=== PATIENT | female | born 1985 | race Caucasian/White ===

== ENCOUNTER 2024-08-23 23:29 | Emergency (ER) | payer OTHER ==
[2024-08-23 23:45] VITALS: BP 109/76; PULSE 84; RESP 16; TEMP 97.9; BMI 28.2
== END 2024-08-24 00:20 | disposition home or self-care (01) ==
LOC: FER 23:29
DX: R50.9 Fever, unspecified (principal); B34.9 Viral infection, unspecified; M79.10 Myalgia, unspecified site; R53.81 Other malaise; R63.8 Other symptoms and signs concerning food and fluid intake
CPT/HCPCS: 0241U-QW; 99283-25

== ENCOUNTER 2024-10-10 19:05 | Observation (INO) | payer OTHER ==
[2024-10-10] MEDS ORDERED: FAMOTIDINE 20 MG/50 ML IVPB 20 MG/50 ML MG IVPB ONE (19:53)
[2024-10-10] MEDS ORDERED: ACETAMINOPHEN INJECTION 100 ML ONE (19:53)
[2024-10-10] MEDS ORDERED: ALBUTEROL SO4 2.5/IPRATROPIUM 0.5 INH SOL 3 ML VIAL.NEB. NEB ONE (19:57)
[2024-10-10] MEDS: ALBUTEROL SO4 2.5/IPRATROPIUM 0.5 INH SOL 3 ML VIAL.NEB. NEB ONE (20:06)
[2024-10-10] MEDS: FAMOTIDINE 20 MG/50 ML IVPB 20 MG/50 ML MG IVPB ONE (20:06)
[2024-10-10] MEDS: ACETAMINOPHEN 1000 MG/100 ML BAG IVPB ONE (20:06)
[2024-10-10 20:16] LABS: ABSOLUTE IMMATURE GRANULOCYTES 0.12 x10^3/uL (0.0-0.031); BASOPHILS # 0.01 x10^3/uL (0.01-0.08); EOSINOPHIL % 0.0 % (0.7-5.8); EOSINOPHILS # 0.00 x10^3/uL (0.04-0.36); MCHC 33.7 g/dl (32.2-35.5); MEAN CELL VOLUME 87.0 fl (79.4-94.8); MEAN PLT VOLUME 11.0 fl (9.4-12.3); MONOCYTE # 1.36 x10^3/uL (0.24-0.86); MONOCYTE % 8.9 % (4.7-12.5); RDW 13.3 % (12.1-16.8)
[2024-10-10 20:41] LABS: CO2 29.0 mmol/L (21-32); GLUCOSE,RANDOM 98.0 mg/dL (74-106)
[2024-10-10 20:44] LABS: CREATININE 0.7 mg/dL (0.55-1.3); SGOT/AST 40.0 U/L (15-37); SGPT/ALT 88.0 U/L (13-61)
[2024-10-10 20:46] LABS: TOT PROT 7.1 g/dl (6.4-8.2)
[2024-10-10 20:47] LABS: ALK PHOS 66.0 U/L (45-117)
[2024-10-10 21:02] LABS: URINE APPEARANCE CLEAR; URINE BILIRUBIN NEGATIVE (NEGATIVE); URINE COLOR YELLOW; URINE GLUCOSE (UA) NEGATIVE (NEGATIVE); URINE KETONE TRACE (NEGATIVE); URINE LEUK ESTERASE NEGATIVE (NEGATIVE); URINE NITRITE NEGATIVE (NEGATIVE); URINE PROTEIN TRACE (NEGATIVE); URINE UROBILINOGEN 1.0 mg/dL (0.2-1.0)
[2024-10-10] MEDS: SODIUM CHLORIDE 0.9% 500 ML INFUS.BAG IV ONE (22:43)
[2024-10-11] MEDS ORDERED: ALBUTEROL SO4 0.083% IH SOL 2.5 MG/3 ML VIAL.NEB. NEB PRN (00:23)
[2024-10-11] MEDS ORDERED: MELATONIN 5 MG TABLETS PO PRN (00:35)
[2024-10-11] MEDS: LACTATED RINGERS SOLUTION 1,000 ML/1,000 ML INFUS.BAG IV SCH (01:32)
[2024-10-11] MEDS: methylPREDNISolone NA SUCC 40 MG/1 ML VIAL IVPUSH SCH (01:32)
[2024-10-11 02:15] VITALS: BMI 27.8
[2024-10-11] MEDS: ACETAMINOPHEN 1000 MG/100 ML BAG IVPB ONE (03:09)
[2024-10-11] MEDS: ALBUTEROL SO4 2.5/IPRATROPIUM 0.5 INH SOL 3 ML VIAL.NEB. NEB SCH (08:00)
[2024-10-11] MEDS: PANTOPRAZOLE SODIUM 40 MG VIAL IVPUSH SCH (09:45)
[2024-10-11 10:33] LABS: CO2 28.0 mmol/L (21-32); GLUCOSE,RANDOM 111.0 mg/dL (74-106)
[2024-10-11 10:36] LABS: CREATININE 0.5 mg/dL (0.55-1.3); SGOT/AST 28.0 U/L (15-37); SGPT/ALT 74.0 U/L (13-61)
[2024-10-11 10:38] LABS: TOT PROT 6.1 g/dl (6.4-8.2)
[2024-10-11 10:39] LABS: ALK PHOS 57.0 U/L (45-117)
[2024-10-11 11:00] LABS: ABSOLUTE IMMATURE GRANULOCYTES 0.07 x10^3/uL (0.0-0.031); BASOPHILS # 0.01 x10^3/uL (0.01-0.08); EOSINOPHIL % 0.0 % (0.7-5.8); EOSINOPHILS # 0.00 x10^3/uL (0.04-0.36); MCHC 32.9 g/dl (32.2-35.5); MEAN CELL VOLUME 88.2 fl (79.4-94.8); MEAN PLT VOLUME 11.6 fl (9.4-12.3); MONOCYTE # 0.24 x10^3/uL (0.24-0.86); MONOCYTE % 2.3 % (4.7-12.5); RDW 13.4 % (12.1-16.8)
[2024-10-11] MEDS: BUDESONIDE/FORMETEROL FUMARATE 160/4.5 mcg INHALER IH SCH (13:25)
[2024-10-11] MEDS: ACETAMINOPHEN 1000 MG/100 ML BAG IVPB PRN (19:22)
[2024-10-12] MEDS: SODIUM CHLORIDE NASAL SPRAY 44 ML BOTTLE NS PRN (01:35)
[2024-10-12 08:04] LABS: ABSOLUTE IMMATURE GRANULOCYTES 0.17 x10^3/uL (0.0-0.031); BASOPHILS # 0.01 x10^3/uL (0.01-0.08); EOSINOPHIL % 0.0 % (0.7-5.8); EOSINOPHILS # 0.00 x10^3/uL (0.04-0.36); MCHC 33.4 g/dl (32.2-35.5); MEAN CELL VOLUME 87.4 fl (79.4-94.8); MEAN PLT VOLUME 11.4 fl (9.4-12.3); MONOCYTE # 0.72 x10^3/uL (0.24-0.86); MONOCYTE % 5.6 % (4.7-12.5); RDW 13.8 % (12.1-16.8)
[2024-10-12 08:57] LABS: CO2 31.0 mmol/L (21-32); GLUCOSE,RANDOM 124.0 mg/dL (74-106)
[2024-10-12 09:00] LABS: CREATININE 0.4 mg/dL (0.55-1.3)
[2024-10-12 10:31] LABS: SGPT/ALT 60.0 U/L (13-61)
[2024-10-12 10:32] LABS: SGOT/AST 13.0 U/L (15-37)
[2024-10-12 10:33] LABS: TOT PROT 6.0 g/dl (6.4-8.2)
[2024-10-12 10:34] LABS: ALK PHOS 55.0 U/L (45-117)
[2024-10-12] MEDS: MECLIZINE HCL 25 MG TABLET (FP) PO PRN (17:25)
[2024-10-13 06:59] LABS: ABSOLUTE IMMATURE GRANULOCYTES 0.16 x10^3/uL (0.0-0.031); BASOPHILS # 0.02 x10^3/uL (0.01-0.08); EOSINOPHIL % 0.0 % (0.7-5.8); EOSINOPHILS # 0.00 x10^3/uL (0.04-0.36); MCHC 33.6 g/dl (32.2-35.5); MEAN CELL VOLUME 88.1 fl (79.4-94.8); MEAN PLT VOLUME 11.2 fl (9.4-12.3); MONOCYTE # 1.03 x10^3/uL (0.24-0.86); MONOCYTE % 7.3 % (4.7-12.5); RDW 14.2 % (12.1-16.8)
[2024-10-13 07:25] LABS: CO2 32.0 mmol/L (21-32); GLUCOSE,RANDOM 101.0 mg/dL (74-106)
[2024-10-13 07:28] LABS: CREATININE 0.5 mg/dL (0.55-1.3); SGOT/AST 12.0 U/L (15-37); SGPT/ALT 57.0 U/L (13-61)
[2024-10-13 07:30] LABS: TOT PROT 5.8 g/dl (6.4-8.2)
[2024-10-13 07:31] LABS: ALK PHOS 51.0 U/L (45-117)
[2024-10-13 09:04] VITALS: BP 114/77; PULSE 85; RESP 16; TEMP 97.7
[2024-10-13] MEDS: methylPREDNISolone NA SUCC 40 MG/1 ML VIAL IVPUSH SCH (10:11)
[2024-10-13 19:15] LABS: HEPATITIS B SURF AG NON-MATERN NON-REACTIVE (NONREACTIVE)
== END 2024-10-13 13:45 | disposition home or self-care (01) ==
LOC: JER 19:05 → JERBED 21:09 → J4S 10-11 01:17
PROVIDERS: ADMIT Family Medicine; ATTEND Family Medicine
PROC: 3E033NZ Introduction of Analgesics, Hypnotics, Sedatives into Peripheral Vein, Percutaneous Approach (ICD-10-PCS; principal; 2024-10-10)
PROC: 3E0F7GC Introduction of Other Therapeutic Substance into Respiratory Tract, Via Natural or Artificial Opening (ICD-10-PCS; 2024-10-10)
PROC: 3E0F7GC Introduction of Other Therapeutic Substance into Respiratory Tract, Via Natural or Artificial Opening (ICD-10-PCS; 2024-10-10)
PROC: 3E03329 Introduction of Other Anti-infective into Peripheral Vein, Percutaneous Approach (ICD-10-PCS; 2024-10-10)
PROC: 3E033GC Introduction of Other Therapeutic Substance into Peripheral Vein, Percutaneous Approach (ICD-10-PCS; 2024-10-10)
PROC: 3E0337Z Introduction of Electrolytic and Water Balance Substance into Peripheral Vein, Percutaneous Approach (ICD-10-PCS; 2024-10-10)
DX: K85.90 Acute pancreatitis without necrosis or infection, unspecified (principal); K21.9 Gastro-esophageal reflux disease without esophagitis; R74.8 Abnormal levels of other serum enzymes; J45.909 Unspecified asthma, uncomplicated; K59.00 Constipation, unspecified; Z90.49 Acquired absence of other specified parts of digestive tract; G89.29 Other chronic pain
CPT/HCPCS: 36415; 71046-TC-FY; 74177-TC; 76705-TC; 80048; 80053; 80076; 81003; 82550; 82962; 83690; 83735; 84100; 84439; 84443; 84478; 84484; 84703; 85025; 86704; 86708; 86803; 87086; 87340; 87389; 87517; 93005; 93010; 93306-TC; 93880-TC; 94640; 99285-25; G0378

== ENCOUNTER 2024-10-20 11:37 | Emergency (ER) | payer OTHER ==
[2024-10-20 11:46] VITALS: BMI 29.2
[2024-10-20] MEDS: SODIUM CHLORIDE 0.9% 500 ML INFUS.BAG IV ONE (13:23)
[2024-10-20 13:33] LABS: ABSOLUTE IMMATURE GRANULOCYTES 0.04 x10^3/uL (0.0-0.031); BASOPHILS # 0.01 x10^3/uL (0.01-0.08); EOSINOPHIL % 1.3 % (0.7-5.8); EOSINOPHILS # 0.12 x10^3/uL (0.04-0.36); MCHC 32.7 g/dl (32.2-35.5); MEAN CELL VOLUME 90.2 fl (79.4-94.8); MEAN PLT VOLUME 10.3 fl (9.4-12.3); MONOCYTE # 0.93 x10^3/uL (0.24-0.86); MONOCYTE % 10.3 % (4.7-12.5); RDW 14.7 % (12.1-16.8)
[2024-10-20 14:07] LABS: GLUCOSE,RANDOM 88.0 mg/dL (74-106)
[2024-10-20 14:08] LABS: TOT PROT 6.0 g/dl (6.4-8.2)
[2024-10-20 14:09] LABS: CO2 27.0 mmol/L (21-32)
[2024-10-20 14:10] LABS: ALK PHOS 56.0 U/L (40-150)
[2024-10-20 14:13] LABS: CREATININE 0.56 mg/dL (0.55-1.3); SGOT/AST 25.0 U/L (5-34); SGPT/ALT 50.0 U/L (0-55)
[2024-10-20 15:15] VITALS: BP 118/74; PULSE 66; RESP 20; TEMP 98
[2024-10-20 15:33] LABS: HCV DIAGNOSTIC IN-HOUSE W/RFLX NON-REACTIVE (NONREACTIVE); HIV INTERPRETATION NEGATIVE (NEGATIVE)
== END 2024-10-20 15:17 | disposition home or self-care (01) ==
LOC: JER 11:37
DX: R42 Dizziness and giddiness (principal); R20.2 Paresthesia of skin; R51.9 Headache, unspecified; R20.0 Anesthesia of skin
CPT/HCPCS: 36415; 80053; 84703; 85025; 86803; 87389; 93005; 93010; 99284-25